=== PATIENT | male | born 1990 | race Caucasian/White ===

== ENCOUNTER 2016-09-09 18:41 | Emergency (ER) | payer OTHER ==
[~2016-09-09] VITALS: Ht 170.2 cm; Wt 81.6 kg
[2016-09-09 19:03] VITALS: BP 129/57
[2016-09-09] MEDS ORDERED: IV NORMAL SALINE 1000ML BAG 1,000 ML IV SCH (19:38)
[2016-09-09] MEDS ORDERED: ONDANSETRON PF 4 MG/2 ML VIAL. IV ONE (19:45)
[2016-09-09] MEDS ORDERED: KETOROLAC TROMETHAMINE 30 MG/ML INJ. IV ONE (19:45)
[2016-09-09 19:48] LABS: BASO # 0.1 x10^3/uL (0.0-0.2); BASO % 1 % (0-3); EOS % 3 % (0-3); HEMATOCRIT 39.3 % (39.0-53.0); HEMOGLOBIN 13.4 g/dL (13.0-17.5); LYMPH % 25 % (24-48); MEAN CORPUSCULAR HEMOGLOBIN 30 pg (25-35); MEAN CORPUSCULAR HGB CONC 34 g/dL (31-37); MEAN CORPUSCULAR VOLUME 89 fL (79-100); MONO % 6 % (0-9); NEUT % 66 % (31-73); PLATELET COUNT 274 x10^3/uL (140-400); RED CELL DISTRIBUTION WIDTH 12.7 % (11.5-14.5); WHITE BLOOD COUNT 7.9 x10^3/uL (4.0-11.0)
[2016-09-09 19:50] LABS: BILIRUBIN,URINE NEGATIVE (NEG); GLUCOSE,URINE NEGATIVE (NEG); NITRITE,URINE NEGATIVE (NEG); PH,URINE 6.5; PROTEIN,URINE NEGATIVE (NEG-TRACE)
[2016-09-09 19:54] LABS: BACTERIA,URINE 0 /HPF (0-FEW); WBC,URINE OCC /HPF (0-4)
[2016-09-09 19:56] LABS: BARBITURATES NEG (NEG); BENZODIAZEPINES NEG (NEG); CANNABINOIDS NEG (NEG); COCAINE NEG (NEG); METHADONE NEG (NEG); OPIATES NEG (NEG); PHENCYCLIDINE NEG (NEG)
[2016-09-09 20:03] LABS: ETHANOL, URINE NEG (NEG)
[2016-09-09 20:07] LABS: CALCIUM 9.4 mg/dL (8.5-10.1); GFR 91.8; POTASSIUM 3.6 mmol/L (3.5-5.1)
[2016-09-09 20:15] LABS: ALBUMIN 4.5 g/dL (3.4-5.0); ALBUMIN/GLOBULIN RATIO 1.3 (1.0-1.7); TOTAL BILIRUBIN 0.6 mg/dL (0.2-1.0); TOTAL PROTEIN 8.1 g/dL (6.4-8.2)
--- NOTE | 2016-09-09 21:18 | RAD ---
PROCEDURE Complete abdominal ultrasound. HISTORY Left abdominal pain and flank pain x2 days. TECHNIQUE Real-time ultrasound imaging of the abdomen is performed. COMPARISON None. FINDINGS Midline structures are obscured due to overlying bowel gas including the pancreas, aorta, IVC, and portions of the left hepatic lobe. The liver measures 17 cm in length and is homogeneous in appearance. Portal flow is hepatopetal. The gallbladder is contracted, patient has not been NPO. No gallstones or gallbladder wall thickening is seen. No pericholecystic fluid is seen. No positive Fitzgerald's sign was elicited during transducer examination of the gallbladder. No extrahepatic biliary ductal dilatation is seen and the extrahepatic bile duct measures 2 mm. The right kidney measures 11.1 cm in length and no hydronephrosis or renal mass or perinephric fluid collection is seen. The left kidney measures 11.4 cm in length and no hydronephrosis or renal mass or perinephric fluid collection is seen. The spleen measures 11.6 cm in length and is homogeneous in appearance. No ascites is seen. IMPRESSION 1. Midline structures are obscured due to overlying bowel gas. 2. No significant sonographic abnormality of the abdomen is seen. Electronically signed by: Jermaine Harris MD (Sep 09, 2016 21:17:17)
--- NOTE | 2016-09-09 22:08 | ED.ADGEN ---
Past Medical History Past Medical History: No Pertinent History Past Surgical History: No Surgical History Alcohol Use: Rarely Drug Use: None Adult General Chief Complaint Chief Complaint: ABDOMINAL PAIN HPI HPI Patient is a 26 year old man, with no significant past medical history, who presents to the emergency department with complaint of left side abdominal pain for the past several days. Patient is pacing coming and going, describes it as a stabbing aching sensation, denies any nausea, any vomiting, any diarrhea. Patient states his last bowel was yesterday, and he believes was normal. No blood in stool or emesis. No sick contacts or exposures. States the pain comes and goes. No injuries, no ingestions. No similar symptoms previously. Review of Systems Review of Systems Constitutional: Denies fever or chills. [] Eyes: Denies change in visual acuity. [] HENT: Denies nasal congestion or sore throat. [] Respiratory: Denies cough or shortness of breath. [] Cardiovascular: Denies chest pain or edema. [] GI: Left-sided abdominal pain, no nausea, no vomiting, no bloody stools or diarrhea. : Denies dysuria. [] Musculoskeletal: Denies back pain or joint pain. [] Integument: Denies rash. [] Neurologic: Denies headache, focal weakness or sensory changes. [] Endocrine: Denies polyuria or polydipsia. [] Lymphatic: Denies swollen glands. [] Psychiatric: Denies depression or anxiety. [] Current Medications Current Medications Current Medications Medications (Trade) Dose Ordered Sig/Halie Start Time Stop Time Status Last Admin Dose Admin Ketorolac Tromethamine (Toradol) 10 mg 1X ONCE 09/09/16 19:45 09/09/16 19:48 DC Ondansetron HCl (Zofran) 4 mg 1X ONCE 09/09/16 19:45 09/09/16 19:48 DC Sodium Chloride (Iv Sodium Chloride 0.9% 1000ml Bag) 1,000 ml @ 1,000 mls/hr Q1H 09/09/16 19:38 09/09/16 20:37 DC 09/09/16 19:57 1,000 MLS/HR Allergies Allergies Allergies Coded Allergies Type Severity Reaction Last Updated Verified No Known Drug Allergies 09/09/16 No Physical Exam Physical Exam Constitutional: Well developed, well nourished, no acute distress, non-toxic appearance. [] HENT: Normocephalic, atraumatic, bilateral external ears normal, oropharynx moist, no oral exudates, nose normal. [] Eyes: PERRLA, EOMI, conjunctiva normal, no discharge. [] Neck: Normal range of motion, no tenderness, supple, no stridor. [] Cardiovascular:Heart rate regular rhythm, no murmur, S1, S2, rubs or gallops. [] Lungs & Thorax: Bilateral breath sounds clear to auscultation, no wheezing, rhonchi, rales. No chest wall tenderness or crepitus. [] Abdomen: Bowel sounds normal, soft, mild tenderness palpation in the left midabdominal region, no rebound, rigidity, no guarding, no masses, no pulsatile masses. [] Skin: Warm, dry, no erythema, no rash. [] Back: No tenderness, no CVA tenderness. [] Extremities: No tenderness, no cyanosis, no clubbing, ROM intact, no edema. [] Neurologic: Alert and oriented X 3, normal motor function, normal sensory function, no focal deficits noted. [] Psychologic: Affect normal, judgement normal, mood normal. [] Current Patient Data Vital Signs Vital Signs Date Time Temp Pulse Resp B/P Pulse Ox O2 Delivery O2 Flow Rate FiO2 09/09/16 19:03 97.9 73 18 129/57 98 Room Air 97.9 Lab Values Laboratory Tests Test 09/09/16 19:10 09/09/16 19:21 White Blood Count 7.9x10^3/uL (4.0-11.0) Red Blood Count 4.40x10^6/uL (4.30-5.70) Hemoglobin 13.4g/dL (13.0-17.5) Hematocrit 39.3% (39.0-53.0) Mean Corpuscular Volume 89fL (79-100) Mean Corpuscular Hemoglobin 30pg (25-35) Mean Corpuscular Hemoglobin Concent 34g/dL (31-37) Red Cell Distribution Width 12.7% (11.5-14.5) Platelet Count 274x10^3/uL (140-400) Neutrophils (%) (Auto) 66% (31-73) Lymphocytes (%) (Auto) 25% (24-48) Monocytes (%) (Auto) 6% (0-9) Eosinophils (%) (Auto) 3% (0-3) Basophils (%) (Auto) 1% (0-3) Neutrophils # (Auto) 5.2x10^3uL (1.8-7.7) Lymphocytes # (Auto) 2.0x10^3/uL (1.0-4.8) Monocytes # (Auto) 0.5x10^3/uL (0.0-1.1) Eosinophils # (Auto) 0.2x10^3/uL (0.0-0.7) Basophils # (Auto) 0.1x10^3/uL (0.0-0.2) Sodium Level 144mmol/L (136-145) Potassium Level 3.6mmol/L (3.5-5.1) Chloride Level 105mmol/L (98-107) Carbon Dioxide Level 28mmol/L (21-32) Anion Gap 11 (6-14) Blood Urea Nitrogen 17mg/dL (8-26) Creatinine 1.0mg/dL (0.7-1.3) Estimated GFR (Cockcroft-Gault) 91.8 BUN/Creatinine Ratio 17 (6-20) Glucose Level 76mg/dL (70-99) Calcium Level 9.4mg/dL (8.5-10.1) Total Bilirubin 0.6mg/dL (0.2-1.0) Aspartate Amino Transferase (AST) 25U/L (15-37) Alanine Aminotransferase (ALT) 32U/L (16-63) Alkaline Phosphatase 89U/L (46-116) Total Protein 8.1g/dL (6.4-8.2) Albumin 4.5g/dL (3.4-5.0) Albumin/Globulin Ratio 1.3 (1.0-1.7) Lipase 93U/L (73-393) Urine Collection Type Unknown Urine Color Yellow Urine Clarity Clear Urine pH 6.5 Urine Specific [place] >=1.030 Urine Protein Negativemg/dL (NEG-TRACE) Urine Glucose (UA) Negativemg/dL (NEG) Urine Ketones (Stick) Negativemg/dL (NEG) Urine Blood Negative (NEG) Urine Nitrite Negative (NEG) Urine Bilirubin Negative (NEG) Urine Urobilinogen Dipstick 1.0mg/dL (0.2 mg/dL) Urine Leukocyte Esterase Negative (NEG) Urine RBC 1-2/HPF (0-2) Urine WBC Occ/HPF (0-4) Urine Squamous Epithelial Cells None/LPF Urine Bacteria 0/HPF (0-FEW) Urine Mucus Marked/LPF Urine Opiates Screen Neg (NEG) Urine Methadone Screen Neg (NEG) Urine Barbiturates Neg (NEG) Urine Phencyclidine Screen Neg (NEG) Urine Amphetamine/Methamphetamine Neg (NEG) Urine Benzodiazepines Screen Neg (NEG) Urine Cocaine Screen Neg (NEG) Urine Cannabinoids Screen Neg (NEG) Urine Ethyl Alcohol Neg (NEG) Laboratory Tests 09/09/16 19:10 Laboratory Tests 09/09/16 19:10 EKG EKG Not indicated. Radiology/Procedures Radiology/Procedures [] [facility] [address] [place] [address] IMAGING REPORT Signed PATIENT: SUNNY SHHA ACCOUNT: [id number] : 1990 LOCATION: ER AGE: 26 SEX: M EXAM STATUS: REG ER ORD. PHYSICIAN: MARILOU CHRISTENSEN DO REASON: L sided abd pain PROCEDURE: ABDOMEN COMPLETE PROCEDURE Complete abdominal ultrasound. HISTORY Left abdominal pain and flank pain x2 days. TECHNIQUE Real-time ultrasound imaging of the abdomen is performed. COMPARISON None. FINDINGS Midline structures are obscured due to overlying bowel gas including the pancreas, aorta, IVC, and portions of the left hepatic lobe. The liver measures 17 cm in length and is homogeneous in appearance. Portal flow is hepatopetal. The gallbladder is contracted, patient has not been NPO. No gallstones or gallbladder wall thickening is seen. No pericholecystic fluid is seen. No positive Fitzgerald's sign was elicited during transducer examination of the gallbladder. No extrahepatic biliary ductal dilatation is seen and the extrahepatic bile duct measures 2 mm. The right kidney measures 11.1 cm in length and no hydronephrosis or renal mass or perinephric fluid collection is seen. The left kidney measures 11.4 cm in length and no hydronephrosis or renal mass or perinephric fluid collection is seen. The spleen measures 11.6 cm in length and is homogeneous in appearance. No ascites is seen. IMPRESSION 1. Midline structures are obscured due to overlying bowel gas. 2. No significant sonographic abnormality of the abdomen is seen. Electronically signed by: Jermaine Harris MD (Sep 09, 2016 21:17:17) DICTATED and SIGNED BY: JERMAINE HARRIS MD DATE: 09/09/162116 CC: MARILOU CHRISTENSEN DO; UNKNOWN PCP NAME ~ Acute abdominal series: 3 view: Normal cardiopulmonary silhouette, no nitrates, no effusions, no pneumothorax, no free air, patient with stool and bowel gas throughout, evidence of mild constipation noted, no evidence of obstruction. As interpreted by me. Course & Med Decision Making Course & Med Decision Making Pertinent Labs and Imaging studies reviewed. (See chart for details) Patient states his pain is currently "a 2 out of 10", has been coming and going over the past several days. Denies any other specific symptoms, is agreeable to receiving laboratory studies and imaging in the ED to further elucidate his symptoms, as they brought to the emergency department today for evaluation. He denies any urinary complaints, any discharge or drainage from the urethra, any STI exposures or concerns. He declined pain medication in the ED. Laboratory studies not reveal any evidence of concerning findings, patient's acute abdominal series and ultrasound abdomen were negative for significant abnormalities, aside from evidence of mild constipation on the abdominal series. I did discuss findings as above with patient, he is resting comfortably at this time without intervention. Recommended instituting high-fiber diet, stay well-hydrated, also discussed concerning symptoms that would prompt return to the emergency department for additional evaluation. Patient voiced understanding and agreement with these instructions, was also given a list of available providers in the area with him to establish follow-up. Patient discharged home in stable condition with instructions and discharge plan as above. Dragon Disclaimer Dragon Disclaimer This electronic medical record was generated, in whole or in part, using a voice recognition dictation system. Departure Impression: Primary Impression: Constipation Additional Impression: Abdominal pain Disposition: 01 HOME, SELF-CARE Condition: IMPROVED Problem Qualifiers MARILOU CHRISTENSEN DO Sep 09, 2016 22:08
--- NOTE | 2016-09-10 09:14 | RAD ---
Abdomen series with chest, 3 views, 09/09/2016: History: Left lower quadrant abdominal pain Gas is present in large and small bowel in a nonspecific pattern. No free air is seen in the abdomen. There is no evidence of organomegaly or significant abnormal abdominal calcification. The heart size is normal. The lungs are clear. There is no evidence of pleural fluid. IMPRESSION: No acute abdominal abnormality is detected.
== END 2016-09-09 21:53 | disposition home or self-care (01) ==
LOC: ER 18:47
DX: K59.00 Constipation, unspecified (principal)
CPT/HCPCS: 36415; 74022; 76700; 80053; 80305; 80320; 81001; 83690; 85027; 96360; 96361; 99285; J7030; G0481

== ENCOUNTER 2016-10-14 12:46 | Emergency (ER) | payer OTHER ==
--- NOTE | 2016-10-14 13:06 | PHYS DOC ---
Past Medical History Past Medical History: No Pertinent History Past Surgical History: No Surgical History Alcohol Use: Rarely Drug Use: None Adult General Chief Complaint Chief Complaint: HEADACHE HPI HPI 26-year-old male who presents with significant migraine type headache that he's had previously before. He states it happened in the night and is progressively worsened throughout today. He has photophobia and phonophobia with nausea and several episodes of emesis. He says he's had migraine headaches since he was a child. He has not follow-up with a PCP for his migraines. He denies any fever or chills. Patient is fully awake and alert at this time. He is afebrile and nontoxic in appearance. He attempted to take 3 Excedrin without relief of symptoms. Review of Systems Review of Systems Constitutional: Denies fever or chills [] Eyes: Denies change in visual acuity, redness, or eye pain [] HENT: Denies nasal congestion or sore throat [] Respiratory: Denies cough or shortness of breath [] Cardiovascular: No additional information not addressed in HPI [] GI: Denies abdominal pain, has nausea, has vomiting, denies bloody stools or diarrhea [] : Denies dysuria or hematuria [] Musculoskeletal: Denies back pain or joint pain [] Integument: Denies rash or skin lesions [] Neurologic: Has headache, denies focal weakness or sensory changes [] Endocrine: Denies polyuria or polydipsia [] Current Medications Current Medications Current Medications Medications (Trade) Dose Ordered Sig/Halie Start Time Stop Time Status Last Admin Dose Admin Dexamethasone Sodium Phosphate (Decadron) 10 mg 1X ONCE 10/14/16 13:15 10/14/16 13:16 DC 10/14/16 13:21 10 MG Diphenhydramine HCl (Benadryl) 25 mg 1X ONCE 10/14/16 13:15 10/14/16 13:16 DC 10/14/16 13:22 25 MG Ketorolac Tromethamine (Toradol Im) 60 mg 1X ONCE 10/14/16 13:15 10/14/16 13:38 DC Ketorolac Tromethamine (Toradol) 30 mg 1X ONCE 10/14/16 13:15 10/14/16 13:16 DC 10/14/16 13:22 30 MG Metoclopramide HCl (Reglan) 10 mg 1X ONCE 10/14/16 13:15 10/14/16 13:16 DC 10/14/16 13:22 10 MG Sodium Chloride 1,000 ml @ 1,000 mls/hr 1X ONCE 10/14/16 13:15 10/14/16 14:14 10/14/16 13:21 1,000 MLS/HR Allergies Allergies Allergies Coded Allergies Type Severity Reaction Last Updated Verified No Known Drug Allergies 09/09/16 No Physical Exam Physical Exam Constitutional: Well developed, well nourished, no acute distress, non-toxic appearance. [] HENT: Normocephalic, atraumatic, bilateral external ears normal, oropharynx moist, no oral exudates, nose normal. [] Eyes: PERRLA, EOMI, conjunctiva normal, no discharge. [] Neck: Normal range of motion, no tenderness, supple, no stridor. [] Cardiovascular:Heart rate regular rhythm, no murmur [] Lungs & Thorax: Bilateral breath sounds clear to auscultation [] Abdomen: Bowel sounds normal, soft, no tenderness, no masses, no pulsatile masses. [] Skin: Warm, dry, no erythema, no rash. [] Back: No tenderness, no CVA tenderness. [] Extremities: No tenderness, no cyanosis, no clubbing, ROM intact, no edema. [] Neurologic: Alert and oriented X 3, normal motor function, normal sensory function, no focal deficits noted. [] Psychologic: Affect normal, judgement normal, mood normal. [] Current Patient Data Vital Signs Vital Signs Date Time Temp Pulse Resp B/P (MAP) Pulse Ox O2 Delivery O2 Flow Rate FiO2 10/14/16 12:51 97.7 65 18 146/75 (98) 99 Room Air 97.7 EKG EKG [] Radiology/Procedures Radiology/Procedures [] Course & Med Decision Making Course & Med Decision Making Pertinent Labs and Imaging studies reviewed. (See chart for details) This 26 old male is having symptoms of migraine exacerbation that he has had before and will receive migraine cocktail including IV Toradol, IV Benadryl, IV Reglan, IV Decadron, and a fluid bolus. I do not see any indication at this time to do CT imaging. Patient will be able to obtain a ride home. I counseled him that he is to follow closely with his primary care doctor for his migraine symptoms. Upon my reassessment, the patient's pain is improved significantly with migraine cocktail and the patient is comfortable going home. I counseled to follow closely with his primary care doctor for his migraine episode. Return precautions in the next 24 hours were provided and acknowledged by the patient. Reed Disclaimer Dragon Disclaimer This electronic medical record was generated, in whole or in part, using a voice recognition dictation system. Departure Departure Impression: Primary Impression: Migraine Disposition: 01 HOME, SELF-CARE Admitting Physician: Other Condition: IMPROVED Referrals: UNKNOWN PCP NAME (PCP) Patient Instructions: Migraine Headache, [id number] Additional Instructions: Please follow-up with your primary care doctor in the next 2-3 days for your migraine headache. Remain in a quiet, dark room for the next 24 hours and avoid any loud noises or other stimulus. Return to the ER immediately if you develop any worsening of your headache. PAOLA CANALES DO October 14, 2016 13:06
[2016-10-14] MEDS ORDERED: KETOROLAC TROMETHAMINE 60 MG/2 ML INJ. IM ONE (13:15)
[2016-10-14] MEDS: DEXAMETHASONE SOD PHOS 20 MG/5 ML VIAL. IV ONE (13:21)
[2016-10-14] MEDS: IV NORMAL SALINE 1000ML BAG 1,000 ML IV ONE (13:21)
[2016-10-14] MEDS: diphenhydrAMINE 50 MG/ML VIAL IVP ONE (13:22)
[2016-10-14] MEDS: KETOROLAC TROMETHAMINE 30 MG/ML INJ. IV ONE (13:22)
[2016-10-14] MEDS: METOCLOPRAMIDE HCL 10 MG/2 ML VIAL. IV ONE (13:22)
[2016-10-14 14:25] VITALS: BP 116/56
== END 2016-10-14 14:31 | disposition home or self-care (01) ==
LOC: ER 12:46
DX: G43.909 Migraine, unspecified, not intractable, without status migrainosus (principal)
CPT/HCPCS: 96361; 96374; 96375; 99284; J1100; J1200; J1885; J2765; J7030